=== PATIENT | male | born 1960 | race Asian ===

== ENCOUNTER 2023-08-14 10:00 | Outpatient (CLI) | payer OTHER ==
[2023-08-14 11:00] LABS: PLATELET COUNT 194 K/uL (142-355)
== END 2023-08-14 19:28 | disposition home or self-care (01) ==
LOC: RAD 10:00
PROVIDERS: ATTEND Internal Medicine
DX: I10 Essential (primary) hypertension (principal)
CPT/HCPCS: 36415; 80053; 80061; 81002; 84439; 84443; 85027